=== PATIENT | male | born 1955 | race Two or more races ===

== ENCOUNTER 2018-11-19 18:56 | Emergency (ER) | payer SELFPAY ==
[~2018-11-19] VITALS: Ht 167.6 cm; Wt 87.1 kg
[2018-11-19 19:30] VITALS: BP 148/94
[2018-11-20] MEDS ORDERED: HYDROcodone-ACET 10/325MG TAB PO ONE
[2018-11-20] MEDS ORDERED: BACLOFEN 10 MG TAB PO ONE
== END 2018-11-20 00:23 | disposition home or self-care (01) ==
LOC: EDBD 18:56 → ER 19:03
DX: S13.4XXA Sprain of ligaments of cervical spine, initial encounter (principal); M62.830 Muscle spasm of back; V49.09XA Driver injured in collision with other motor vehicles in nontraffic accident, initial encounter; Y93.89 Activity, other specified; Y92.410 Unspecified street and highway as the place of occurrence of the external cause; Y99.8 Other external cause status
CPT/HCPCS: 72040